=== PATIENT | male | born 1955 | race Hispanic/Latino ===

== ENCOUNTER → 2020-04-18 | Outpatient (CLI) | payer SELFPAY ==
--- NOTE | 2020-04-19 13:34 | CT ---
EXAM DESCRIPTION: Head w/Contrast CLINICAL HISTORY: HEADACHE COMPARISON: None available TECHNIQUE: Contiguous axial images through the head were obtained after intravenous contrast administration. Sagittal and coronal reconstructions were reviewed. FINDINGS: No evidence of acute major vascular territorial infarct or intraparenchymal hemorrhage. No intra-axial or extra-axial fluid collections are identified. The ventricles and cisterns appear normal in caliber. The sella and suprasellar regions appear normal. The structures of the posterior fossa are intact. The globes are intact bilaterally. The visualized paranasal sinuses and mastoid air cells are well-aerated. Review of the bones demonstrates no gross instability. IMPRESSION: No CT evidence of acute intracranial process. This exam was performed according to our departmental dose-optimization program, which includes automated exposure control, adjustment of the mA and/or kV according to patient size and/or use of iterative reconstruction technique. Electronically signed by: Katelin Ornelas MD 04/19/2020 1:33 PM CDT
== END ==
LOC: YCFC.O 16:41
PROVIDERS: ATTEND Family Medicine
DX: R51 Headache (principal); R68.89 Other general symptoms and signs

== ENCOUNTER → 2020-04-24 | Outpatient (CLI) | payer SELFPAY | LOC: YCFC.O 09:59 | PROVIDERS: ATTEND Family Medicine | DX: E03.9 Hypothyroidism, unspecified (principal) ==

== ENCOUNTER → 2020-08-07 | Outpatient (CLI) | payer SELFPAY | LOC: YCFC.O 11:42 | PROVIDERS: ATTEND Nurse Practitioner | DX: Z03.818 Encounter for observation for suspected exposure to other biological agents ruled out (principal); Z03.89 Encounter for observation for other suspected diseases and conditions ruled out ==